=== PATIENT | male | born 1970 | race Two or more races ===

== ENCOUNTER 2024-07-27 01:14 | Inpatient (IN) | payer MEDICARE, MEDICAID ==
[~2024-07-27] VITALS: Ht 170.2 cm; Wt 83.5 kg
[2024-07-27] VITALS (10 sets, daily range): BP systolic 121–156; BP diastolic 67–102; PULSE 61–107; RESP 12–16; TEMP 97.4–98.6; O2SAT 91–99
[2024-07-27 03:03] LABS: BASOPHILS # (AUTO) 0.1 X10'3 (0-0.2); BASOPHILS % (AUTO) 1.1 % (0-1); EOSINOPHILS # (AUTO) 0.1 X10'3 (0-0.9); EOSINOPHILS % (AUTO) 1.5 % (0-6); HEMATOCRIT 43.2 % (42.0-52.0); HEMOGLOBIN 14.4 g/dl (14.0-17.9); LYMPHOCYTES # (AUTO) 1.2 X10'3 (1.1-4.8); LYMPHOCYTES % (AUTO) 18.6 % (21-51); MEAN CORPUSCULAR HEMOGLOBIN 28.5 PG (27.0-31.0); MEAN CORPUSCULAR HGB CONC 33.4 g/dL (33.0-36.5); MEAN CORPUSCULAR VOLUME 85.2 FL (78-98); MEAN PLATELET VOLUME 6.8 FL (7.4-10.4); MONOCYTES # (AUTO) 0.6 X10'3 (0-0.9); MONOCYTES % (AUTO) 9.3 % (2-12); NEUTROPHILS # (AUTO) 4.6 X10'3 (1.8-7.7); NEUTROPHILS % (AUTO) 69.5 % (42-75); PLATELET COUNT 369 X10'3 (140-440); RED BLOOD COUNT 5.08 X10'6 (4.70-6.10); RED CELL DISTRIBUTION WIDTH 15.1 % (11.5-14.5); WHITE BLOOD COUNT 6.7 X10'3 (4.5-11.0)
[2024-07-27] MEDS: normal saline 1000ml 1,000 ML IV ONE (03:18)
[2024-07-27 03:19] LABS: ALANINE AMINOTRANSFERASE 22 U/L (12-78); ALBUMIN 3.2 G/DL (3.4-5.0); ALBUMIN/GLOBULIN RATIO 0.7 (1.1-1.5); ALKALINE PHOSPHATASE 123 IU/L (46-116); ANION GAP 9 (8-16); ASPARTATE AMINO TRANSFERASE 19 U/L (10-37); BILIRUBIN,DIRECT 0.2 MG/DL (0-0.3); BILIRUBIN,TOTAL 0.6 MG/DL (0.1-1.0); BLOOD UREA NITROGEN 18 MG/DL (7-18); BUN/CREATININE RATIO 19.4 (10.0-20.0); CALCIUM 9.4 MG/DL (8.5-10.1); CHLORIDE 104 MMOL/L (99-107); CREATININE 0.93 MG/DL (0.60-1.10); GLUCOSE 98 MG/DL (70-104); POTASSIUM 3.7 MMOL/L (3.5-5.1); SODIUM 139 MMOL/L (135-145); TOTAL CARBON DIOXIDE 25.6 MMOL/L (24-32); TOTAL PROTEIN 7.8 G/DL (6.4-8.2); eCRCL 85 ML/MIN; eGFR 85 ML/MIN
[2024-07-27] MEDS: CefTRIAXone 2gm/D5W 50ml BAG 50 ML IV ONE (03:22)
[2024-07-27] MEDS: VANCOMYCIN 1,500MG inj. 1,500 MG in normal saline 500ml IV soln 300 ML IV SCH (04:21)
[2024-07-27] MEDS ORDERED: mag hydrox/Alum hydrox/simeth 30ml oral suspension PO PRN (05:30)
[2024-07-27] MEDS ORDERED: potassium Cl 40MEQ/1/2NS 520ml 520 ML IV PRN (05:30)
[2024-07-27] MEDS ORDERED: HYDROcodone/acetaminophen 5mg/325mg tablet PO PRN (05:30)
[2024-07-27] MEDS ORDERED: magnesium hydroxide 30ml (MOM) UD suspension PO PRN (05:30)
[2024-07-27] MEDS ORDERED: magnesium sulf-water 4G/100mL 100 ML IV PRN (05:30)
[2024-07-27] MEDS ORDERED: potassium Cl 20 mEq SR tablet PO PRN ×2 (05:30)
[2024-07-27] MEDS ORDERED: acetaminophen 325mg tablet PO PRN ×2 (05:30)
[2024-07-27] MEDS ORDERED: magnesium Cl slow-release 64mg tablet PO PRN (05:30)
[2024-07-27] MEDS ORDERED: magnesium sulf-water 2g/50mL 50 ML IV PRN (05:30)
[2024-07-27] MEDS: morphine 2 MG/ML inj. syringe IV PRN (05:48)
[2024-07-27] MEDS: normal saline 1000ml 1,000 ML IV SCH (05:48)
[2024-07-27] MEDS: K and/or MAG REPLACEMENT MC SCH (07:13)
[2024-07-27] MEDS ORDERED: albuterol 2.5 MG/3 ML nebule NEB PRN (07:35)
[2024-07-27] MEDS ORDERED: piperacillin/tazo 4.5gm/100ml 100 ML IV SCH (08:00)
[2024-07-27] MEDS: docusate sod 100mg capsule PO SCH (08:23)
[2024-07-27 08:35] LABS: MAGNESIUM 2.2 MG/DL (1.5-2.4); POTASSIUM 3.7 MMOL/L (3.5-5.1)
--- NOTE | 2024-07-27 08:59 | NUR ---
[facility] FAXED MRI SCREENING FORM
[2024-07-27] MEDS ORDERED: ALBU18HF2 (12:34)
[2024-07-27] MEDS ORDERED: BACL10TA2 PO (12:34)
[2024-07-27] MEDS ORDERED: HYDR-3964 PO (12:34)
[2024-07-27] MEDS: bacitracin 15gm ointment TP ONE (13:13)
[2024-07-27] MEDS: BUPIVAcaine/PF 2.5mg/ml (0.25%) 10ml vial ONE (13:13)
[2024-07-27] MEDS ORDERED: hydrALAZINE 20mg/ml inj. IV PRN (14:15)
[2024-07-27] MEDS ORDERED: morphine 2 MG/ML inj. syringe IV PRN (14:15)
[2024-07-27] MEDS: ringers solution, lacted 1,000 ML IV SCH (14:15)
[2024-07-27] MEDS ORDERED: labetalol 20mg/4ml (5mg/ml) syringe IV PRN (14:15)
[2024-07-27] MEDS ORDERED: ondansetron/PF 4mg/2ml inj IV PRN (14:15)
[2024-07-27] MEDS ORDERED: fentaNYL/PF 50MCG/1 ML 2ML syringe IV PRN ×2 (14:15)
[2024-07-27] MEDS ORDERED: fentaNYL/PF 50MCG/1 ML 2ML syringe ONE (14:24)
[2024-07-27] MEDS ORDERED: midazolam 1 mg/ML 2ml injection ONE (14:25)
[2024-07-27] MEDS ORDERED: propofol inj 20 ML IV ONE ×2 (14:27)
[2024-07-27] MEDS ORDERED: LIDOcaine 2% (20mg/ml) 5ml vial ONE (14:27)
[2024-07-27] MEDS ORDERED: dexamethasone sod phosphate 4mg/ml inj. ONE (14:27)
[2024-07-27] MEDS ORDERED: sevoflurane 250ml liquid IH ONE (14:27)
[2024-07-27] MEDS: vancomycin 1,000mg inj ONE (14:58)
[2024-07-27] MEDS: tobramycin 40mg/ml inj ONE (14:58)
[2024-07-27] MEDS: vancomycin 1,000mg inj IVT ONE (15:22)
--- NOTE | 2024-07-27 16:06 | NUR ---
Received from OR via BED, accompanied by Anesthesiologist and report given by JACKELIN Anesthesiologist. PATIENT WAKING UP, DENIES PAIN, V/S WNL, SCD ON, 20G TO RIGHT FOREARM, LEFT FOOT DRESSING C/D/I. Addendum: 07/27/24 at 1627 by Rishabh Nicholas RN Amended: Links added.
[2024-07-27] MEDS ORDERED: GADOTERATE MEGLUMINE 7.5 MMOL/15 ML VIAL IV ONE (16:08)
[2024-07-27] MEDS: morphine 4 MG/ML inj SYRINge IV PRN (16:12)
--- NOTE | 2024-07-27 16:36 | NUR ---
PATIENT HAS MET ALL CRITERIA FOR TRANSFER TO ORTHO FLOOR. VSS. DRESSINGS INTACT. BED LOW, CALL LIGHT PRESENT AND 2 RAILS UP. RN PRESENT TO ACCEPT CARE OF PATIENT AND REPORT HAS BEEN CALLED. ALL QUESTIONS ANSWERED TO ACCEPTING RN-ARSLAN. Addendum: 07/27/24 at 1655 by Rishabh Nicholas RN Amended: Links added.
[2024-07-27] MEDS ORDERED: vancomycin/NS 1 GM ADD-VANTAGE 250 ML IV SCH (17:00)
[2024-07-27] MEDS: VANCOmycin 1250MG/NS 250ml Bag 250 ML IV SCH (17:21)
--- NOTE | 2024-07-27 18:24 | NUR ---
Problems reprioritized. Patient report given, questions answered & plan of care reviewed with Nathaniel LYNN.
--- NOTE | 2024-07-27 19:20 | NUR ---
Patient in room ORTHO 4024. I have received report from Mayra LYNN and had the opportunity to ask questions and assume patient care. Patient was being noncompliant and walking to the bathroom. Dressing was reinforced due to saturation. Called Dr. Lares and updated him regarding the situation. Will continue to reinforce the dressing if saturated or displaced. Addendum: 07/27/24 at 1926 by Magno Lewis RN Patient is also to be non weight bearing on the affected foot.
[2024-07-28] MEDS: HYDROcodone/acetaminophen 10/325mg tab PO PRN (01:55)
[2024-07-28 02:00] VITALS: BP 117/58; PULSE 75; RESP 18; TEMP 98.2; O2SAT 94
[2024-07-28] MEDS ORDERED: CefTRIAXone/D5W-Rocephin 1gm 50 ML IV SCH (03:00)
--- NOTE | 2024-07-28 06:10 | NUR ---
Problems reprioritized. Patient report given, questions answered & plan of care reviewed with Anni LYNN.
[2024-07-28 06:13] LABS: PROTHROMBIN TIME 10.4 SECONDS (9.0-12.0)
[2024-07-28 06:43] LABS: ANION GAP 10 (8-16); BLOOD UREA NITROGEN 13 MG/DL (7-18); BUN/CREATININE RATIO 17.1 (10.0-20.0); CALCIUM 8.5 MG/DL (8.5-10.1); CHLORIDE 107 MMOL/L (99-107); CREATININE 0.76 MG/DL (0.60-1.10); GLUCOSE 117 MG/DL (70-104); MAGNESIUM 1.9 MG/DL (1.5-2.4); SODIUM 142 MMOL/L (135-145); TOTAL CARBON DIOXIDE 24.7 MMOL/L (24-32); eCRCL 104 ML/MIN; eGFR > 90 ML/MIN
[2024-07-28 06:45] LABS: ALANINE AMINOTRANSFERASE 21 U/L (12-78); ALBUMIN 2.6 G/DL (3.4-5.0); ALBUMIN/GLOBULIN RATIO 0.6 (1.1-1.5); ALKALINE PHOSPHATASE 105 IU/L (46-116); ASPARTATE AMINO TRANSFERASE 21 U/L (10-37); BILIRUBIN,TOTAL 0.2 MG/DL (0.1-1.0); TOTAL PROTEIN 6.8 G/DL (6.4-8.2)
[2024-07-28 08:00] VITALS: BP 116/62; PULSE 66; RESP 18; TEMP 98.4; O2SAT 98
[2024-07-28 10:00] VITALS: BP 122/77; PULSE 67; RESP 18; TEMP 97.9; O2SAT 97
[2024-07-28 10:12] LABS: BASOPHILS % (AUTO) 0.4 % (0-1); EOSINOPHILS % (AUTO) 0.1 % (0-6); HEMATOCRIT 41.4 % (42.0-52.0); HEMOGLOBIN 13.7 g/dl (14.0-17.9); LYMPHOCYTES # (AUTO) 0.9 X10'3 (1.1-4.8); LYMPHOCYTES % (AUTO) 8.7 % (21-51); MEAN CORPUSCULAR HEMOGLOBIN 28.3 PG (27.0-31.0); MEAN CORPUSCULAR HGB CONC 33.2 g/dL (33.0-36.5); MEAN CORPUSCULAR VOLUME 85.2 FL (78-98); MEAN PLATELET VOLUME 7.6 FL (7.4-10.4); MONOCYTES # (AUTO) 0.7 X10'3 (0-0.9); MONOCYTES % (AUTO) 6.8 % (2-12); NEUTROPHILS # (AUTO) 8.9 X10'3 (1.8-7.7); PLATELET COUNT 346 X10'3 (140-440); RED BLOOD COUNT 4.85 X10'6 (4.70-6.10); RED CELL DISTRIBUTION WIDTH 15.5 % (11.5-14.5); WHITE BLOOD COUNT 10.5 X10'3 (4.5-11.0)
[2024-07-28] MEDS: baclofen 10mg tablet PO SCH (14:13)
[2024-07-28] MEDS: VANCOMYCIN LEVEL IV ONE (16:05)
[2024-07-28 18:00] VITALS: BP 123/87; PULSE 76; RESP 18; TEMP 98.3; O2SAT 98
--- NOTE | 2024-07-28 18:46 | NUR ---
Problems reprioritized. Patient report given, questions answered & plan of care reviewed with SHANE Ghosh.
[2024-07-28 20:00] VITALS: RESP 18; O2SAT 98
[2024-07-28] MEDS: albuterol 2.5 MG/3 ML nebule NEB SCH (21:00)
[2024-07-28 22:00] VITALS: BP 126/76; PULSE 75; RESP 18; TEMP 97.3; O2SAT 98
[2024-07-29] VITALS (8 sets, daily range): BP systolic 119–145; BP diastolic 79–83; PULSE 55–76; RESP 14–18; TEMP 97.6–98.1; O2SAT 97–99
[2024-07-29] MEDS: VANCOMYCIN 1,500MG in NS 300ml IVPB IV SCH (04:28)
--- NOTE | 2024-07-29 06:26 | NUR ---
Problems reprioritized. Patient report given, questions answered & plan of care reviewed with Ana Maria GUSMAN. Addendum: 07/29/24 at 0627 by Davina New RN Amended: Links added.
[2024-07-29 06:37] LABS: BASOPHILS % (AUTO) 0.9 % (0-1); EOSINOPHILS # (AUTO) 0.1 X10'3 (0-0.9); EOSINOPHILS % (AUTO) 1.5 % (0-6); HEMATOCRIT 43.6 % (42.0-52.0); HEMOGLOBIN 14.6 g/dl (14.0-17.9); LYMPHOCYTES # (AUTO) 1.4 X10'3 (1.1-4.8); MEAN CORPUSCULAR HEMOGLOBIN 28.4 PG (27.0-31.0); MEAN CORPUSCULAR HGB CONC 33.5 g/dL (33.0-36.5); MEAN CORPUSCULAR VOLUME 84.7 FL (78-98); MEAN PLATELET VOLUME 7.3 FL (7.4-10.4); MONOCYTES # (AUTO) 0.4 X10'3 (0-0.9); MONOCYTES % (AUTO) 8.6 % (2-12); NEUTROPHILS # (AUTO) 3.2 X10'3 (1.8-7.7); PLATELET COUNT 334 X10'3 (140-440); RED BLOOD COUNT 5.14 X10'6 (4.70-6.10); RED CELL DISTRIBUTION WIDTH 15.5 % (11.5-14.5); WHITE BLOOD COUNT 5.2 X10'3 (4.5-11.0)
[2024-07-29 06:41] LABS: PROTHROMBIN TIME 10.5 SECONDS (9.0-12.0)
[2024-07-29 06:50] LABS: ALANINE AMINOTRANSFERASE 18 U/L (12-78); ALBUMIN 2.7 G/DL (3.4-5.0); ALBUMIN/GLOBULIN RATIO 0.6 (1.1-1.5); ALKALINE PHOSPHATASE 98 IU/L (46-116); ANION GAP 8 (8-16); ASPARTATE AMINO TRANSFERASE 10 U/L (10-37); BILIRUBIN,TOTAL 0.3 MG/DL (0.1-1.0); BLOOD UREA NITROGEN 8 MG/DL (7-18); BUN/CREATININE RATIO 11.3 (10.0-20.0); CALCIUM 8.8 MG/DL (8.5-10.1); CHLORIDE 107 MMOL/L (99-107); CREATININE 0.71 MG/DL (0.60-1.10); GLUCOSE 103 MG/DL (70-104); MAGNESIUM 1.6 MG/DL (1.5-2.4); POTASSIUM 3.8 MMOL/L (3.5-5.1); SODIUM 144 MMOL/L (135-145); TOTAL CARBON DIOXIDE 29.1 MMOL/L (24-32); TOTAL PROTEIN 6.9 G/DL (6.4-8.2); eCRCL 111 ML/MIN; eGFR > 90 ML/MIN
[2024-07-29] MEDS: albuterol 2.5 MG/3 ML nebule NEB SCH (11:37)
--- NOTE | 2024-07-29 12:30 | NUR ---
approximately around 1230 I was directed from my charge abhijit to move patient from 4024B to room 4007. When gathering his belongings the patient acted very suspicious and paranoid about nursing staff touching his belongings. When patients bed was transferred I saw a straw on the floor that was cut in half. Inside the straw was white residue and on the floor there were chunks of white stuff scattered periodically on the floor. Notified HEAD LOADER and charge nurse. will do a UA per protocol.
[2024-07-29 17:40] LABS: BILIRUBIN,URINE NEGATIVE (Neg); CLARITY,URINE CLEAR (Clear); COLOR,URINE STRAW (Yellow); GLUCOSE, URINE NEGATIVE (Neg); KETONES,URINE NEGATIVE (Neg); LEUKOCYTE ESTERASE ,URINE NEGATIVE (Neg); NITRITES, URINE NEGATIVE (Neg); OCCULT BLOOD,URINE NEGATIVE (Neg); PROTEIN,URINE NEGATIVE (Neg); UROBILINOGEN,URINE 0.2 E.U/dL (0.2-1.0)
[2024-07-29 17:43] LABS: UA COLLECTION TYPE NON-SPECIFIED
[2024-07-29 17:52] LABS: URINE AMPHETAMINE SCREEN NEGATIVE (Neg); URINE BARBITUATE SCREEN NEGATIVE (Neg); URINE BENZODIAZEPINES SCREEN NEGATIVE (Neg); URINE CANNABINOID SCREEN POSITIVE (Neg); URINE COCAINE SCREEN NEGATIVE (Neg); URINE METHADONE SCREEN NEGATIVE (Neg); URINE OPIATE SCREEN POSITIVE (Neg); URINE PHENCYCLIDINE SCREEN NEGATIVE (Neg)
--- NOTE | 2024-07-29 19:35 | NUR ---
Patient resting comfortably on bed, easy to wake. Has no concerns at this time.
[2024-07-29] MEDS: ondansetron/PF 4mg/2ml inj IV PRN (22:10)
[2024-07-30] VITALS (9 sets, daily range): BP systolic 116–149; BP diastolic 69–91; PULSE 61–82; RESP 14–20; TEMP 97.5–98.6; O2SAT 95–100
[2024-07-30 02:22] LABS: BASOPHILS # (AUTO) 0.1 X10'3 (0-0.2); BASOPHILS % (AUTO) 1.1 % (0-1); EOSINOPHILS # (AUTO) 0.1 X10'3 (0-0.9); EOSINOPHILS % (AUTO) 1.8 % (0-6); HEMATOCRIT 41.8 % (42.0-52.0); LYMPHOCYTES # (AUTO) 1.3 X10'3 (1.1-4.8); MEAN CORPUSCULAR HGB CONC 33.4 g/dL (33.0-36.5); MEAN CORPUSCULAR VOLUME 83.9 FL (78-98); MONOCYTES # (AUTO) 0.6 X10'3 (0-0.9); MONOCYTES % (AUTO) 10.4 % (2-12); NEUTROPHILS % (AUTO) 65.7 % (42-75); PLATELET COUNT 327 X10'3 (140-440); RED BLOOD COUNT 4.98 X10'6 (4.70-6.10); RED CELL DISTRIBUTION WIDTH 15.8 % (11.5-14.5)
[2024-07-30 02:37] LABS: PROTHROMBIN TIME 10.2 SECONDS (9.0-12.0)
[2024-07-30 02:40] LABS: ALANINE AMINOTRANSFERASE 20 U/L (12-78); ALBUMIN 2.4 G/DL (3.4-5.0); ALBUMIN/GLOBULIN RATIO 0.6 (1.1-1.5); ALKALINE PHOSPHATASE 87 IU/L (46-116); ANION GAP 6 (8-16); ASPARTATE AMINO TRANSFERASE 15 U/L (10-37); BILIRUBIN,TOTAL 0.2 MG/DL (0.1-1.0); BLOOD UREA NITROGEN 11 MG/DL (7-18); BUN/CREATININE RATIO 14.9 (10.0-20.0); CALCIUM 8.9 MG/DL (8.5-10.1); CHLORIDE 107 MMOL/L (99-107); CREATININE 0.74 MG/DL (0.60-1.10); GLUCOSE 99 MG/DL (70-104); MAGNESIUM 1.6 MG/DL (1.5-2.4); POTASSIUM 4.1 MMOL/L (3.5-5.1); SODIUM 142 MMOL/L (135-145); TOTAL CARBON DIOXIDE 28.8 MMOL/L (24-32); TOTAL PROTEIN 6.3 G/DL (6.4-8.2); eCRCL 107 ML/MIN; eGFR > 90 ML/MIN
[2024-07-30] MEDS: morphine 2 MG/ML inj. syringe IV PRN (04:08)
--- NOTE | 2024-07-30 05:09 | NUR ---
CARDIOVASCULAR INVASIVE SPECIALIST DOCUMENTATION: I have reviewed all assessment and charting on this patient by Tyrese GUSMAN and agree with his documentation.
--- NOTE | 2024-07-30 06:21 | NUR ---
Problems reprioritized. Patient report given, questions answered & plan of care reviewed with Adrián RN.
--- NOTE | 2024-07-30 06:36 | NUR ---
Patient in room ORTHO 4007. I have received report from Tyrese GUSMAN and had the opportunity to ask questions and assume patient care.
--- NOTE | 2024-07-30 06:43 | NUR ---
Problems reprioritized. Patient report given, questions answered & plan of care reviewed with Adrián RN.
[2024-07-30] MEDS: VANCOMYCIN 1,500MG in NS 300ml IVPB IV SCH (12:00)
[2024-07-30] MEDS ORDERED: VANCOMYCIN LEVEL IV ONE (15:30)
--- NOTE | 2024-07-30 18:17 | NUR ---
Problems reprioritized. Patient report given, questions answered & plan of care reviewed with Ehsan LYNN.
[2024-07-30] MEDS: enoxaparin 40mg/0.4ml syringe SUBCUT SCH (21:11)
[2024-07-31] VITALS (10 sets, daily range): BP systolic 140–146; BP diastolic 76–97; PULSE 62–76; RESP 16–20; TEMP 97.8–98.6; O2SAT 96–100
[2024-07-31 06:08] LABS: BASOPHILS # (AUTO) 0.1 X10'3 (0-0.2); BASOPHILS % (AUTO) 1.2 % (0-1); EOSINOPHILS # (AUTO) 0.1 X10'3 (0-0.9); EOSINOPHILS % (AUTO) 1.9 % (0-6); HEMATOCRIT 44.7 % (42.0-52.0); HEMOGLOBIN 14.6 g/dl (14.0-17.9); LYMPHOCYTES # (AUTO) 1.2 X10'3 (1.1-4.8); LYMPHOCYTES % (AUTO) 22.4 % (21-51); MEAN CORPUSCULAR HEMOGLOBIN 27.7 PG (27.0-31.0); MEAN CORPUSCULAR HGB CONC 32.8 g/dL (33.0-36.5); MEAN CORPUSCULAR VOLUME 84.5 FL (78-98); MEAN PLATELET VOLUME 7.3 FL (7.4-10.4); MONOCYTES # (AUTO) 0.5 X10'3 (0-0.9); MONOCYTES % (AUTO) 9.1 % (2-12); NEUTROPHILS # (AUTO) 3.5 X10'3 (1.8-7.7); NEUTROPHILS % (AUTO) 65.4 % (42-75); PLATELET COUNT 337 X10'3 (140-440); RED BLOOD COUNT 5.29 X10'6 (4.70-6.10); RED CELL DISTRIBUTION WIDTH 15.7 % (11.5-14.5); WHITE BLOOD COUNT 5.4 X10'3 (4.5-11.0)
[2024-07-31 06:18] LABS: PROTHROMBIN TIME 10.3 SECONDS (9.0-12.0)
[2024-07-31 06:28] LABS: ALANINE AMINOTRANSFERASE 29 U/L (12-78); ALBUMIN 2.7 G/DL (3.4-5.0); ALBUMIN/GLOBULIN RATIO 0.7 (1.1-1.5); ALKALINE PHOSPHATASE 96 IU/L (46-116); ANION GAP 7 (8-16); ASPARTATE AMINO TRANSFERASE 29 U/L (10-37); BILIRUBIN,TOTAL 0.3 MG/DL (0.1-1.0); BLOOD UREA NITROGEN 10 MG/DL (7-18); BUN/CREATININE RATIO 12.8 (10.0-20.0); CHLORIDE 108 MMOL/L (99-107); CREATININE 0.78 MG/DL (0.60-1.10); GLUCOSE 86 MG/DL (70-104); MAGNESIUM 1.7 MG/DL (1.5-2.4); SODIUM 143 MMOL/L (135-145); TOTAL CARBON DIOXIDE 27.7 MMOL/L (24-32); TOTAL PROTEIN 6.8 G/DL (6.4-8.2); eCRCL 101 ML/MIN; eGFR > 90 ML/MIN
--- NOTE | 2024-07-31 06:45 | NUR ---
Problems reprioritized. Patient report given, questions answered & plan of care reviewed with SHANE Perez.
--- NOTE | 2024-07-31 14:21 | NUR ---
PRESSURE ULCER EDUCATION: DEFINITION: A pressure ulcer is an area of skin that breaks down when you stay in one position too long. The constant pressure against the skin reduces the blood flow to that area and the affected tissue dies. CAUSES: "Being bedridden or in a wheelchair "Fragile skin "Having a chronic condition, such as diabetes or vascular disease "Inability to move certain parts of your body without assistance "Older age "Incontinence of urine or stool SYMPTOMS: "A reddened area that DOES NOT turn white when pressed on - this can be the beginning of a pressure ulcer "A blister, deep sore or a crater - these can be advanced pressure ulcers FIRST AID: "Relieve the pressure on this area "Keep the area clean and dry "Call your primary doctor if you see any of the above symptoms "DO NOT massage the area "DO NOT use a donut shaped or ring shaped pillow- these actually interfere with the blood flow and cause complications PREVENTION: "Check for pressure ulcers everyday "Change position at least every two hours to relieve pressure "Use items that help relieve pressure- pillows, sheepskin, foam padding, and powders. "Keep skin clean and dry "Eat healthy well balanced meals "Exercise daily IF YOU SEE ANY OF THESE SYMPTOMS WHILE IN THE HOSPITAL - TELL YOUR NURSE IMMEDIATELY. IF YOU SEE ANY OF THESE SYMPTOMS WHILE AT HOME OR HAVE ANY QUESTIONS OR CONCERNS ABOUT PRESSURE ULCERS - CALL YOUR PRIMARY DOCTOR IMMEDIATELY. Addendum: 07/31/24 at 1421 by Anthony Moss RN Amended: Links added.
--- NOTE | 2024-07-31 18:05 | NUR ---
Patient in room ORTHO 4007. I have received report from Ana LYNN and had the opportunity to ask questions and assume patient care.
[2024-07-31] MEDS: VANCOMYCIN LEVEL IV ONE (23:00)
[2024-08-01] VITALS (9 sets, daily range): BP systolic 124–147; BP diastolic 62–93; PULSE 65–90; RESP 16–19; TEMP 98–98.8; O2SAT 95–99
[2024-08-01 05:37] LABS: HBSAG SCREEN Negative (Negative); HEP B CORE AB, IGM Negative (Negative); HEP B CORE AB, TOT Negative (Negative)
[2024-08-01 05:51] LABS: BASOPHILS # (AUTO) 0.1 X10'3 (0-0.2); EOSINOPHILS # (AUTO) 0.1 X10'3 (0-0.9); EOSINOPHILS % (AUTO) 2.1 % (0-6); HEMATOCRIT 41.8 % (42.0-52.0); HEMOGLOBIN 13.7 g/dl (14.0-17.9); LYMPHOCYTES # (AUTO) 1.1 X10'3 (1.1-4.8); MEAN CORPUSCULAR HEMOGLOBIN 27.9 PG (27.0-31.0); MEAN CORPUSCULAR HGB CONC 32.7 g/dL (33.0-36.5); MEAN CORPUSCULAR VOLUME 85.1 FL (78-98); MEAN PLATELET VOLUME 7.5 FL (7.4-10.4); MONOCYTES # (AUTO) 0.6 X10'3 (0-0.9); NEUTROPHILS # (AUTO) 4.4 X10'3 (1.8-7.7); NEUTROPHILS % (AUTO) 70.9 % (42-75); PLATELET COUNT 313 X10'3 (140-440); RED BLOOD COUNT 4.91 X10'6 (4.70-6.10); RED CELL DISTRIBUTION WIDTH 15.7 % (11.5-14.5); WHITE BLOOD COUNT 6.2 X10'3 (4.5-11.0)
[2024-08-01 06:11] LABS: INR 0.9 INR; PROTHROMBIN TIME 10.1 SECONDS (9.0-12.0)
[2024-08-01 06:16] LABS: ALANINE AMINOTRANSFERASE 27 U/L (12-78); ALBUMIN 2.7 G/DL (3.4-5.0); ALBUMIN/GLOBULIN RATIO 0.7 (1.1-1.5); ALKALINE PHOSPHATASE 93 IU/L (46-116); ANION GAP 8 (8-16); ASPARTATE AMINO TRANSFERASE 17 U/L (10-37); BILIRUBIN,TOTAL 0.3 MG/DL (0.1-1.0); BLOOD UREA NITROGEN 11 MG/DL (7-18); BUN/CREATININE RATIO 14.3 (10.0-20.0); CALCIUM 9.1 MG/DL (8.5-10.1); CHLORIDE 106 MMOL/L (99-107); CREATININE 0.77 MG/DL (0.60-1.10); GLUCOSE 99 MG/DL (70-104); POTASSIUM 3.8 MMOL/L (3.5-5.1); SODIUM 141 MMOL/L (135-145); TOTAL CARBON DIOXIDE 26.8 MMOL/L (24-32); TOTAL PROTEIN 6.8 G/DL (6.4-8.2); eCRCL 103 ML/MIN; eGFR > 90 ML/MIN
--- NOTE | 2024-08-01 06:35 | NUR ---
Problems reprioritized. Patient report given, questions answered & plan of care reviewed with Kaylee LYNN.
--- NOTE | 2024-08-01 13:19 | NUR ---
Primary nurse called to ask if surgical dressing has been changed by [facility]OC. Directed primary nurse to contact surgeon for orders. [facility]OC plan to follow up later in the week.
--- NOTE | 2024-08-01 18:05 | NUR ---
Patient in room ORTHO 4007. I have received report from Kaylee LYNN and had the opportunity to ask questions and assume patient care.
[2024-08-02] VITALS (8 sets, daily range): BP systolic 121–154; BP diastolic 76–92; PULSE 64–74; RESP 16–18; TEMP 97.6–98.3; O2SAT 97–99
--- NOTE | 2024-08-02 06:22 | NUR ---
Problems reprioritized. Patient report given, questions answered & plan of care reviewed with Petr LYNN.
--- NOTE | 2024-08-02 13:58 | NUR ---
WOUND INFECTION EDUCATION PROVIDED BY WOUND CARE 1. Patient instructed to call their primary doctor, or go the ED immediately if any of the following symptoms occur: * Increased pain in wound * Increase in drainage from the wound * Redness in the skin surrounding the wound * Warmth in the skin surrounding the wound * Bleeding from the wound * Temperature of 101 or greater 2. If any of these occur while in the hospital tell a nurse immediately. Addendum: 08/02/24 at 1358 by Dalia Alejandro LVN Amended: Links added.
--- NOTE | 2024-08-02 14:00 | NUR ---
Patient in room ORTHO 4007. I have received report from SHANE ROLON and had the opportunity to ask questions and assume patient care.
--- NOTE | 2024-08-02 14:00 | NUR ---
Report given to Trinity Nguyen RN.
--- NOTE | 2024-08-02 18:22 | NUR ---
Problems reprioritized. Patient report given, questions answered & plan of care reviewed with SHANE BROWN.
--- NOTE | 2024-08-02 18:44 | NUR ---
Patient in room ORTHO 4007. I have received report from Trinity LYNN and had the opportunity to ask questions and assume patient care.
--- NOTE | 2024-08-02 19:49 | NUR ---
pt showed me a paper check from his [place] for $713 and wanted to deposit it. He also has a debit card. I will follow up with charge and case management and add check to belongings list.
--- NOTE | 2024-08-03 06:10 | NUR ---
Problems reprioritized. Patient report given, questions answered & plan of care reviewed with Janny RN.
[2024-08-03 07:18] VITALS: RESP 16; O2SAT 99
--- NOTE | 2024-08-03 08:00 | NUR ---
after several attempts to connect with someone at [facility] rehab [phone] finally able to give report to Kelsie nurse at station 3, pt to be picked up soon
[2024-08-03 08:02] VITALS: BP 142/82; PULSE 65; RESP 17; TEMP 98.3; O2SAT 99
--- NOTE | 2024-08-03 08:30 | NUR ---
saroj roger that transport now changed to 1 pm, pc to [facility] spoke with Corazon to update
--- NOTE | 2024-08-03 09:11 | NUR ---
Patient requested covering for right finger. Per Dr. Hutchinson's request. Applied 4x4 gauze with medical tape to cover right finger.
--- NOTE | 2024-08-03 10:03 | NUR ---
Garret Hutchinson NP via hospital phone. Waiting for a response regarding patient wanting to leave on his own.
[2024-08-03 10:07] VITALS: PULSE 67; RESP 16; O2SAT 100
[2024-08-03 10:15] VITALS: PULSE 67; RESP 16
--- NOTE | 2024-08-03 10:15 | NUR ---
Garret Hutchinson NP via computer. Notified the healthcare provider that Patient [id number] wants to leave on his own. Waiting for a response.
[2024-08-03 10:29] VITALS: BP 125/70; PULSE 67; RESP 18; TEMP 98.7; O2SAT 96
--- NOTE | 2024-08-03 12:01 | NUR ---
Talked to physical therapy. He is discharged from physical therapy due to being discharged at 1300.
--- NOTE | 2024-08-03 13:15 | NUR ---
Transportation got the patient for discharge. IV line has been discontinued.
--- NOTE | 2024-08-03 13:33 | NUR ---
pc to [facility] to update Lorena that pt is in route and had vanco dose this am at 1130 am, forgot to update transfer sheet from this am
--- NOTE | 2024-08-03 18:30 | NUR ---
preceptor telephone triage nurse: I have reviewed and agree with all interventions, assessments performed and documented by Ludivina Kuhn RN.
== END 2024-08-03 13:00 | DRG 496 ==
LOC: ER 01:16 → ED HOLD 05:35 → ORTHO 4S 16:45
PROVIDERS: ADMIT Internal Medicine Sleep Medicine; ATTEND Internal Medicine
PROC: 0QDP0ZZ Extraction of Left Metatarsal, Open Approach (ICD-10-PCS; 2024-07-27)
PROC: 0QPP04Z Removal of Internal Fixation Device from Left Metatarsal, Open Approach (ICD-10-PCS; 2024-07-27)
PROC: 3E0U029 Introduction of Other Anti-infective into Joints, Open Approach (ICD-10-PCS; principal; 2024-07-27 14:27)
PROC: 02HV33Z Insertion of Infusion Device into Superior Vena Cava, Percutaneous Approach (ICD-10-PCS; 2024-07-31)
DX: T84.59XA Infection and inflammatory reaction due to other internal joint prosthesis, initial encounter (principal); L03.116 Cellulitis of left lower limb; M86.8X7 Other osteomyelitis, ankle and foot; J45.909 Unspecified asthma, uncomplicated; Z60.2 Problems related to living alone; G80.9 Cerebral palsy, unspecified; M21.612 Bunion of left foot; X58.XXXA Exposure to other specified factors, initial encounter; Y83.8 Other surgical procedures as the cause of abnormal reaction of the patient, or of later complication, without mention of misadventure at the time of the procedure; Y92.89 Other specified places as the place of occurrence of the external cause
CPT/HCPCS: 36415; 73630; 76942; 80048; 80053; 80076; 80202; 80305; 81003; 82948; 83605; 83735; 84132; 84145; 85025; 85610; 85651; 86704; 86705; 87040; 87070; 87075; 87077; 87081; 87186; 87340; 94640; 94760; 96365; 96366; 96375; 97110; 97116; 97161; 97530; 99285; A4333; A4615; A4618; A6196; A6213; A6222; A6266; A6446; A6449; A7000; A9575; C1713; C1751; G0378; J0696; J1100; J1650; J2250; J2270; J2405; J2704; J3010; J3260; J3370; J3490; J7030; J7040

== ENCOUNTER 2024-12-09 00:53 | Emergency (ER) | payer BC, MEDICAID ==
[~2024-12-09] VITALS: Ht 170.2 cm; Wt 79.2 kg
[~2024-12-09 00:53] MED LIST: ALBU18HF2; BACL10TA2 PO; HYDR-3964 PO
[2024-12-09 01:04] VITALS: BP 119/69; PULSE 85; TEMP 97.9; O2SAT 97
[2024-12-09 01:48] LABS: BASOPHILS # (AUTO) 0.1 X10'3 (0-0.2); BASOPHILS % (AUTO) 1.5 % (0-1); EOSINOPHILS # (AUTO) 0.3 X10'3 (0-0.9); EOSINOPHILS % (AUTO) 6.6 % (0-6); HEMATOCRIT 43.6 % (42.0-52.0); HEMOGLOBIN 14.8 g/dl (14.0-17.9); LYMPHOCYTES # (AUTO) 1.6 X10'3 (1.1-4.8); LYMPHOCYTES % (AUTO) 36.9 % (21-51); MEAN CORPUSCULAR HEMOGLOBIN 29.5 PG (27.0-31.0); MEAN CORPUSCULAR HGB CONC 33.9 g/dL (33.0-36.5); MEAN PLATELET VOLUME 6.8 FL (7.4-10.4); MONOCYTES # (AUTO) 0.6 X10'3 (0-0.9); MONOCYTES % (AUTO) 13.7 % (2-12); NEUTROPHILS # (AUTO) 1.8 X10'3 (1.8-7.7); NEUTROPHILS % (AUTO) 41.3 % (42-75); PLATELET COUNT 323 X10'3 (140-440); RED BLOOD COUNT 5.01 X10'6 (4.70-6.10); RED CELL DISTRIBUTION WIDTH 14.6 % (11.5-14.5); WHITE BLOOD COUNT 4.4 X10'3 (4.5-11.0)
[2024-12-09 02:05] LABS: ALANINE AMINOTRANSFERASE 27 U/L (12-78); ALBUMIN 3.3 G/DL (3.4-5.0); ALBUMIN/GLOBULIN RATIO 0.8 (1.1-1.5); ALKALINE PHOSPHATASE 127 IU/L (46-116); ANION GAP 10 (8-16); ASPARTATE AMINO TRANSFERASE 22 U/L (10-37); BILIRUBIN,TOTAL 0.4 MG/DL (0.1-1.0); BLOOD UREA NITROGEN 20 MG/DL (7-18); CALCIUM 8.9 MG/DL (8.5-10.1); CHLORIDE 106 MMOL/L (99-107); CREATININE 0.87 MG/DL (0.60-1.10); GLUCOSE 119 MG/DL (70-104); POTASSIUM 3.7 MMOL/L (3.5-5.1); SODIUM 143 MMOL/L (135-145); TOTAL CARBON DIOXIDE 26.8 MMOL/L (24-32); TOTAL PROTEIN 7.6 G/DL (6.4-8.2); eCRCL 91 ML/MIN; eGFR > 90 ML/MIN
[2024-12-09 02:28] LABS: PLATELET ESTIMATE NORMAL; TOTAL CELLS COUNTED 100
[2024-12-09 02:29] LABS: SMUDGE CELLS 2+
[2024-12-09] MEDS: CefTRIAXone 2gm/D5W 50ml BAG 50 ML IV ONE (03:07)
[2024-12-09] MEDS ORDERED: CEPH500C3 PO (04:43)
[2024-12-09 05:26] VITALS: RESP 16
== END 2024-12-09 05:27 | disposition home or self-care (01) ==
LOC: ER 00:53
DX: L03.116 Cellulitis of left lower limb (principal); Z59.00 Homelessness unspecified; Z79.899 Other long term (current) drug therapy
CPT/HCPCS: 36415; 71045; 80053; 83605; 85007; 85025; 87040; 96365; 99284; J0696

== ENCOUNTER 2024-12-30 02:50 | Emergency (ER) | payer BC, MEDICAID ==
[~2024-12-30] VITALS: Ht 170.2 cm; Wt 84.1 kg
[2024-12-30 02:55] VITALS: BP 123/77; PULSE 87; RESP 18; TEMP 97.9; O2SAT 99
[2024-12-30] MEDS ORDERED: ALBU18HF2 INH (03:57)
[2024-12-30] MEDS ORDERED: CEPH-585 PO (03:57)
== END 2024-12-30 04:05 | disposition home or self-care (01) ==
LOC: ER 02:51
DX: T69.022A Immersion foot, left foot, initial encounter (principal); Z98.890 Other specified postprocedural states; X58.XXXA Exposure to other specified factors, initial encounter; Y93.89 Activity, other specified; Y92.89 Other specified places as the place of occurrence of the external cause; Y99.8 Other external cause status
CPT/HCPCS: 99283

== ENCOUNTER 2025-01-02 17:25 | Emergency (ER) | payer BC, MEDICAID ==
[~2025-01-02] VITALS: Ht 170.2 cm; Wt 88.6 kg
[~2025-01-02 17:25] MED LIST changes: +ALBU18HF2 INH; +CEPH-585 PO
[2025-01-02 22:08] VITALS: BP 148/88; PULSE 84; RESP 18; TEMP 98.8; O2SAT 97
== END 2025-01-02 22:11 | disposition home or self-care (01) ==
LOC: ER 17:26
DX: M79.672 Pain in left foot (principal); Z79.899 Other long term (current) drug therapy; Z98.890 Other specified postprocedural states
CPT/HCPCS: 73630; 99283; L3260

== ENCOUNTER 2025-01-03 20:36 | Emergency (ER) | payer BC, MEDICAID ==
[~2025-01-03] VITALS: Ht 170.2 cm; Wt 65.3 kg
[2025-01-03 21:01] VITALS: BP 142/78; PULSE 74; RESP 15; O2SAT 99
[2025-01-04] MEDS ORDERED: ibuprofen tablet 400 MG TABLET PO ONE (00:10)
[2025-01-04] MEDS ORDERED: IBUP-1984 PO (00:15)
[2025-01-04] MEDS ORDERED: KETO15CR2 TOP (00:15)
[2025-01-04] MEDS: acetaminophen 325mg tablet PO ONE (00:40)
[2025-01-04] MEDS: ibuprofen tablet 400 MG TABLET PO ONE (00:40)
[2025-01-04 00:57] VITALS: TEMP 97.7
== END 2025-01-04 01:03 | disposition home or self-care (01) ==
LOC: ER 20:37
DX: M25.512 Pain in left shoulder (principal); M79.642 Pain in left hand; M25.522 Pain in left elbow; Z98.890 Other specified postprocedural states; W01.0XXA Fall on same level from slipping, tripping and stumbling without subsequent striking against object, initial encounter; Y93.01 Activity, walking, marching and hiking; Y92.89 Other specified places as the place of occurrence of the external cause; Y99.8 Other external cause status
CPT/HCPCS: 73030; 73080; 73120; 99284

== ENCOUNTER 2025-01-12 22:09 | Emergency (ER) | payer BC, MEDICAID ==
[~2025-01-12] VITALS: Ht 170.2 cm; Wt 95.5 kg
[~2025-01-12 22:09] MED LIST changes: +IBUP-1984 PO; +KETO15CR2 TOP
[2025-01-12 22:18] VITALS: BP 124/72; PULSE 102; RESP 18; TEMP 98.9; O2SAT 95
[2025-01-12] MEDS ORDERED: TAM75C PO (23:47)
[2025-01-13] MEDS: oseltamivir phos 75mg capsule PO ONE (00:02)
== END 2025-01-13 00:13 | disposition home or self-care (01) ==
LOC: ER 22:10
DX: R05.9 Cough, unspecified (principal); J02.9 Acute pharyngitis, unspecified; R50.9 Fever, unspecified; J00 Acute nasopharyngitis [common cold]; F15.90 Other stimulant use, unspecified, uncomplicated; Z79.1 Long term (current) use of non-steroidal anti-inflammatories (NSAID); Z79.899 Other long term (current) drug therapy; Z98.890 Other specified postprocedural states; Z59.00 Homelessness unspecified; Z20.822 Contact with and (suspected) exposure to COVID-19
CPT/HCPCS: 36415; 71045; 87502; 87503; 87811; 99284

== ENCOUNTER 2025-01-13 07:27 | Emergency (ER) | payer BC, MEDICAID ==
[~2025-01-13] VITALS: Ht 170.2 cm; Wt 74.0 kg
[~2025-01-13 07:27] MED LIST changes: +TAM75C PO
[2025-01-13] MEDS: ketorolac trometh 30MG/ML vial 30 MG/ML VIAL IM ONE (09:47)
[2025-01-13 10:55] VITALS: BP 130/84; PULSE 67; RESP 14; TEMP 98.1; O2SAT 98
== END 2025-01-13 10:59 | disposition home or self-care (01) ==
LOC: ER 07:27
DX: S60.222A Contusion of left hand, initial encounter (principal); S70.02XA Contusion of left hip, initial encounter; S00.83XA Contusion of other part of head, initial encounter; F15.90 Other stimulant use, unspecified, uncomplicated; Z79.1 Long term (current) use of non-steroidal anti-inflammatories (NSAID); Z79.899 Other long term (current) drug therapy; Z59.00 Homelessness unspecified; Z98.890 Other specified postprocedural states; Y04.8XXA Assault by other bodily force, initial encounter; Y93.89 Activity, other specified; Y92.89 Other specified places as the place of occurrence of the external cause; Y99.8 Other external cause status
CPT/HCPCS: 73130; 96372; 99284; J1885

== ENCOUNTER 2025-01-15 04:52 | Observation (INO) | payer BC, MEDICAID ==
[~2025-01-15] VITALS: Ht 170.2 cm; Wt 70.2 kg
[2025-01-15 06:40] LABS: BASOPHILS # (AUTO) 0.1 X10'3 (0-0.2); EOSINOPHILS # (AUTO) 0.2 X10'3 (0-0.9); EOSINOPHILS % (AUTO) 3.1 % (0-6); HEMATOCRIT 42.2 % (42.0-52.0); HEMOGLOBIN 14.2 g/dl (14.0-17.9); LYMPHOCYTES # (AUTO) 0.9 X10'3 (1.1-4.8); LYMPHOCYTES % (AUTO) 14.9 % (21-51); MEAN CORPUSCULAR HEMOGLOBIN 29.5 PG (27.0-31.0); MEAN CORPUSCULAR HGB CONC 33.7 g/dL (33.0-36.5); MEAN CORPUSCULAR VOLUME 87.5 FL (78-98); MEAN PLATELET VOLUME 6.9 FL (7.4-10.4); MONOCYTES # (AUTO) 0.5 X10'3 (0-0.9); MONOCYTES % (AUTO) 7.8 % (2-12); NEUTROPHILS # (AUTO) 4.5 X10'3 (1.8-7.7); NEUTROPHILS % (AUTO) 73.2 % (42-75); PLATELET COUNT 382 X10'3 (140-440); RED BLOOD COUNT 4.82 X10'6 (4.70-6.10); WHITE BLOOD COUNT 6.2 X10'3 (4.5-11.0)
[2025-01-15 06:43] LABS: ALANINE AMINOTRANSFERASE 39 U/L (12-78); ALBUMIN 3.4 G/DL (3.4-5.0); ALBUMIN/GLOBULIN RATIO 0.9 (1.1-1.5); ALKALINE PHOSPHATASE 133 IU/L (46-116); ANION GAP 6 (8-16); ASPARTATE AMINO TRANSFERASE 28 U/L (10-37); BILIRUBIN,TOTAL 0.3 MG/DL (0.1-1.0); BLOOD UREA NITROGEN 20 MG/DL (7-18); BUN/CREATININE RATIO 39.2 (10.0-20.0); CALCIUM 8.4 MG/DL (8.5-10.1); CHLORIDE 107 MMOL/L (99-107); CREATININE 0.51 MG/DL (0.60-1.10); GLUCOSE 115 MG/DL (70-104); LIPASE 135 U/L (16-77); POTASSIUM 3.5 MMOL/L (3.5-5.1); SODIUM 141 MMOL/L (135-145); TOTAL CARBON DIOXIDE 28.5 MMOL/L (24-32); TOTAL PROTEIN 7.4 G/DL (6.4-8.2); eCRCL 155 ML/MIN; eGFR > 90 ML/MIN
[2025-01-15] MEDS ORDERED: iohexol 300mg/ml 100ml inj. ONE (08:24)
[2025-01-15] MEDS: normal saline 1000ML IV soln IVB ONE ×2 (08:26→13:14)
[2025-01-15 08:29] LABS: ETHANOL < 10 MG/DL (<10)
[2025-01-15] MEDS ORDERED: vancomycin/NS 1 GM ADD-VANTAGE 250 ML IV ONE (10:25)
[2025-01-15 11:20] LABS: BILIRUBIN,URINE NEGATIVE (Neg); CLARITY,URINE CLEAR (Clear); COLOR,URINE YELLOW (Yellow); GLUCOSE, URINE NEGATIVE (Neg); KETONES,URINE NEGATIVE (Neg); LEUKOCYTE ESTERASE ,URINE NEGATIVE (Neg); NITRITES, URINE NEGATIVE (Neg); OCCULT BLOOD,URINE NEGATIVE (Neg); PROTEIN,URINE TRACE mg/dl (Neg); UROBILINOGEN,URINE 0.2 E.U/dL (0.2-1.0)
[2025-01-15 11:29] LABS: UA COLLECTION TYPE CLN CATCH MIDSTREAM
[2025-01-15 11:37] LABS: WBC,URINE 0-4 /HPF (0-4)
[2025-01-15 11:38] LABS: BACTERIA,URINE FEW /HPF (Neg); MUCUS STRANDS FEW /LPF (Neg); RBC,URINE 0-2 /HPF (0-2); SQUAMOUS EPITHELIAL CELL,UR FEW /LPF (FEW)
[2025-01-15] MEDS: normal saline 1000ML IV soln IV ONE (11:39)
[2025-01-15] MEDS: vancomycin/NS 1 GM ADD-VANTAGE 250 ML IV ONE (11:39)
[2025-01-15] MEDS ORDERED: ipratropium/albuterol 3ml nebule NEB PRN (11:40)
[2025-01-15] MEDS ORDERED: magnesium sulf-water 2g/50mL 50 ML IV PRN (11:40)
[2025-01-15] MEDS ORDERED: HYDROmorphone inj. 0.5 MG/0.5 ML DISP.SYRIN IV PRN (11:40)
[2025-01-15] MEDS ORDERED: HYDROcodone/acetaminophen 10/325mg tab PO PRN (11:40)
[2025-01-15] MEDS ORDERED: magnesium sulf-water 4G/100mL 100 ML IV PRN (11:40)
[2025-01-15] MEDS ORDERED: acetaminophen 325mg tablet PO PRN ×2 (11:40)
[2025-01-15] MEDS ORDERED: potassium Cl 40MEQ/1/2NS 520ml 520 ML IV PRN (11:40)
[2025-01-15] MEDS ORDERED: ondansetron/PF 4mg/2ml inj IV PRN (11:40)
[2025-01-15] MEDS ORDERED: HYDROmorphone/PF 0.2 MG/ML SYRINGE IV PRN (11:40)
[2025-01-15] MEDS ORDERED: potassium Cl 20 mEq SR tablet PO PRN ×2 (11:40)
[2025-01-15] MEDS ORDERED: mag hydrox/Alum hydrox/simeth 30ml oral suspension PO PRN (11:40)
[2025-01-15] MEDS ORDERED: albuterol 2.5 MG/3 ML nebule NEB PRN (11:40)
[2025-01-15] MEDS ORDERED: magnesium hydroxide 30ml (MOM) UD suspension PO PRN (11:40)
[2025-01-15] MEDS ORDERED: LORazepam 2 mg/ml vial IV PRN (12:55)
[2025-01-15] MEDS ORDERED: haloperidol 5mg tablet PO PRN (12:55)
[2025-01-15] MEDS ORDERED: haloperidol lactate 5mg/ml inj IM PRN (12:55)
[2025-01-15] MEDS: CefTRIAXone/D5W-Rocephin 1gm 50 ML IV ONE (13:21)
[2025-01-15] MEDS: normal saline 1000ml 1,000 ML IV SCH (13:47)
[2025-01-15 14:30] VITALS: PULSE 78; RESP 16; O2SAT 99
[2025-01-15] MEDS ORDERED: LORA10TA7 PO (17:15)
[2025-01-15] MEDS ORDERED: ALBUTEROL 108MCG/A A INH (17:26)
[2025-01-15] MEDS ORDERED: HYDR28CR14 TOP (17:26)
[2025-01-15] MEDS ORDERED: CLOT15CR35 TOP (17:26)
[2025-01-15 19:45] VITALS: BP 131/77; PULSE 88; RESP 16; TEMP 98.4; O2SAT 97
[2025-01-15] MEDS: K and/or MAG REPLACEMENT MC SCH (20:00)
[2025-01-15] MEDS ORDERED: enoxaparin 40mg/0.4ml syringe SQ SCH (20:00)
[2025-01-15] MEDS: docusate sod 100mg capsule PO SCH (20:17)
[2025-01-15] MEDS: vancomycin/NS 1 GM ADD-VANTAGE 250 ML IV SCH (21:22)
[2025-01-15 22:00] VITALS: BP 141/84; PULSE 87; RESP 18; TEMP 98.8; O2SAT 98
[2025-01-16 00:01] VITALS: O2SAT 98
[2025-01-16] MEDS ORDERED: albuterol 2.5 MG/3 ML nebule NEB PRN (01:40)
[2025-01-16 06:00] VITALS: BP 127/86; PULSE 78; RESP 18; TEMP 98.3; O2SAT 98
[2025-01-16 06:10] LABS: BASOPHILS # (AUTO) 0.1 X10'3 (0-0.2); BASOPHILS % (AUTO) 1.1 % (0-1); EOSINOPHILS # (AUTO) 0.2 X10'3 (0-0.9); EOSINOPHILS % (AUTO) 2.6 % (0-6); HEMATOCRIT 37.3 % (42.0-52.0); HEMOGLOBIN 12.6 g/dl (14.0-17.9); LYMPHOCYTES # (AUTO) 0.8 X10'3 (1.1-4.8); LYMPHOCYTES % (AUTO) 13.8 % (21-51); MEAN CORPUSCULAR HEMOGLOBIN 29.8 PG (27.0-31.0); MEAN CORPUSCULAR HGB CONC 33.8 g/dL (33.0-36.5); MEAN CORPUSCULAR VOLUME 88.1 FL (78-98); MEAN PLATELET VOLUME 6.9 FL (7.4-10.4); MONOCYTES # (AUTO) 0.5 X10'3 (0-0.9); MONOCYTES % (AUTO) 8.2 % (2-12); NEUTROPHILS # (AUTO) 4.4 X10'3 (1.8-7.7); NEUTROPHILS % (AUTO) 74.3 % (42-75); PLATELET COUNT 327 X10'3 (140-440); RED BLOOD COUNT 4.23 X10'6 (4.70-6.10); RED CELL DISTRIBUTION WIDTH 15.1 % (11.5-14.5); WHITE BLOOD COUNT 5.9 X10'3 (4.5-11.0)
[2025-01-16 06:23] LABS: ALANINE AMINOTRANSFERASE 29 U/L (12-78); ALBUMIN 2.7 G/DL (3.4-5.0); ALBUMIN/GLOBULIN RATIO 0.8 (1.1-1.5); ALKALINE PHOSPHATASE 103 IU/L (46-116); ANION GAP 5 (8-16); ASPARTATE AMINO TRANSFERASE 18 U/L (10-37); BILIRUBIN,TOTAL 0.5 MG/DL (0.1-1.0); BLOOD UREA NITROGEN 11 MG/DL (7-18); BUN/CREATININE RATIO 18.6 (10.0-20.0); CALCIUM 8.4 MG/DL (8.5-10.1); CHLORIDE 110 MMOL/L (99-107); CREATININE 0.59 MG/DL (0.60-1.10); GLUCOSE 107 MG/DL (70-104); LIPASE 30 U/L (16-77); MAGNESIUM 1.8 MG/DL (1.5-2.4); PHOSPHORUS 3.5 MG/DL (2.3-4.5); POTASSIUM 3.9 MMOL/L (3.5-5.1); SODIUM 142 MMOL/L (135-145); TOTAL CARBON DIOXIDE 26.6 MMOL/L (24-32); TOTAL PROTEIN 6.1 G/DL (6.4-8.2); eCRCL 134 ML/MIN; eGFR > 90 ML/MIN
[2025-01-16 06:25] LABS: PROTHROMBIN TIME 10.3 SECONDS (9.0-12.0)
[2025-01-16 08:59] VITALS: RESP 16
[2025-01-16] MEDS: CefTRIAXone/D5W-Rocephin 1gm 50 ML IV SCH (09:52)
[2025-01-16] MEDS: baclofen 10mg tablet PO SCH (09:52)
[2025-01-16] MEDS: loratadine 10mg tablet PO SCH (09:52)
[2025-01-16] MEDS: HYDROcodone/acetaminophen 5mg/325mg tablet PO PRN (09:55)
[2025-01-16 10:00] VITALS: BP 145/93; PULSE 94; RESP 16; TEMP 98.2; O2SAT 97
[2025-01-16] MEDS ORDERED: VANCOMYCIN LEVEL IV ONE (11:30)
[2025-01-16] MEDS ORDERED: ACAM333T8 PO (11:40)
[2025-01-16] MEDS: VANCOMYCIN/WATER FOR INJ (PEG) 1.25GM/250 ML IVPB IV SCH (13:55)
[2025-01-16 19:15] VITALS: RESP 18; O2SAT 96
[2025-01-17] MEDS ORDERED: VANCOMYCIN LEVEL IV ONE (12:30)
[2025-01-17] MEDS ORDERED: LORazepam 1 MG tablet PO PRN (12:55)
[2025-01-17] MEDS ORDERED: LORazepam 2 mg/ml vial IV PRN (12:55)
== END 2025-01-16 19:34 | disposition home or self-care (01) ==
LOC: ER 04:52 → ED HOLD 11:47 → INTOOBSV 11:47 → ORTHO 4S 19:28
PROVIDERS: ADMIT Family Medicine; ATTEND Family Medicine
DX: F10.129 Alcohol abuse with intoxication, unspecified (principal); L03.317 Cellulitis of buttock; S70.02XA Contusion of left hip, initial encounter; S70.12XA Contusion of left thigh, initial encounter; L02.416 Cutaneous abscess of left lower limb; J45.909 Unspecified asthma, uncomplicated; R74.8 Abnormal levels of other serum enzymes; M86.9 Osteomyelitis, unspecified; R10.84 Generalized abdominal pain; K85.90 Acute pancreatitis without necrosis or infection, unspecified; M60.9 Myositis, unspecified; R11.2 Nausea with vomiting, unspecified; G80.9 Cerebral palsy, unspecified; F15.90 Other stimulant use, unspecified, uncomplicated; F17.210 Nicotine dependence, cigarettes, uncomplicated; Z79.899 Other long term (current) drug therapy; Z59.00 Homelessness unspecified; X58.XXXA Exposure to other specified factors, initial encounter; Y93.9 Activity, unspecified; Y92.89 Other specified places as the place of occurrence of the external cause; Y99.8 Other external cause status; Y90.0 Blood alcohol level of less than 20 mg/100 ml
CPT/HCPCS: 36415; 71045; 80053; 80202; 80320; 81001; 83605; 83690; 83735; 84100; 84145; 85025; 85610; 87040; 87081; 94760; 96361; 96365; 96366; 96367; 97161; 97535; 99285; G0378; J0696; J3370; J7030; Q9967

== ENCOUNTER 2025-01-20 01:46 | Emergency (ER) | payer BC, MEDICAID ==
[~2025-01-20] VITALS: Ht 170.2 cm; Wt 73.8 kg
[~2025-01-20 01:46] MED LIST changes: +ACAM333T8 PO; -ALBU18HF2 INH; +ALBUTEROL 108MCG/A A INH; -CEPH-585 PO; +CLOT15CR35 TOP; +HYDR28CR14 TOP; -IBUP-1984 PO; -KETO15CR2 TOP; +LORA10TA7 PO; -TAM75C PO
[2025-01-20 01:52] VITALS: BP 119/95; PULSE 87; RESP 17; O2SAT 100
[2025-01-20] MEDS: LORazepam 1 MG tablet PO ONE (02:11)
[2025-01-20] MEDS: normal saline 1000ml 1,000 ML IV ONE (02:11)
[2025-01-20 02:50] LABS: BASOPHILS # (AUTO) 0.1 X10'3 (0-0.2); EOSINOPHILS # (AUTO) 0.1 X10'3 (0-0.9); EOSINOPHILS % (AUTO) 3.1 % (0-6); HEMATOCRIT 39.9 % (42.0-52.0); HEMOGLOBIN 13.4 g/dl (14.0-17.9); LYMPHOCYTES # (AUTO) 1.2 X10'3 (1.1-4.8); LYMPHOCYTES % (AUTO) 24.3 % (21-51); MEAN CORPUSCULAR HEMOGLOBIN 29.6 PG (27.0-31.0); MEAN CORPUSCULAR HGB CONC 33.6 g/dL (33.0-36.5); MEAN PLATELET VOLUME 6.5 FL (7.4-10.4); MONOCYTES # (AUTO) 0.7 X10'3 (0-0.9); MONOCYTES % (AUTO) 15.2 % (2-12); NEUTROPHILS # (AUTO) 2.6 X10'3 (1.8-7.7); NEUTROPHILS % (AUTO) 55.4 % (42-75); PLATELET COUNT 320 X10'3 (140-440); RED BLOOD COUNT 4.53 X10'6 (4.70-6.10); WHITE BLOOD COUNT 4.8 X10'3 (4.5-11.0)
[2025-01-20 03:04] LABS: ALANINE AMINOTRANSFERASE 30 U/L (12-78); ALBUMIN 3.6 G/DL (3.4-5.0); ALBUMIN/GLOBULIN RATIO 1.1 (1.1-1.5); ALKALINE PHOSPHATASE 114 IU/L (46-116); ANION GAP 6 (8-16); ASPARTATE AMINO TRANSFERASE 25 U/L (10-37); BILIRUBIN,TOTAL 0.8 MG/DL (0.1-1.0); BLOOD UREA NITROGEN 27 MG/DL (7-18); BUN/CREATININE RATIO 34.2 (10.0-20.0); CALCIUM 8.7 MG/DL (8.5-10.1); CHLORIDE 105 MMOL/L (99-107); CREATININE 0.79 MG/DL (0.60-1.10); GLUCOSE 89 MG/DL (70-104); POTASSIUM 3.9 MMOL/L (3.5-5.1); SODIUM 139 MMOL/L (135-145); TOTAL CARBON DIOXIDE 27.6 MMOL/L (24-32); eCRCL 100 ML/MIN; eGFR > 90 ML/MIN
[2025-01-20 03:16] LABS: PLATELET ESTIMATE NORMAL; TOTAL CELLS COUNTED 100
[2025-01-20] MEDS ORDERED: LOPE-144 PO (03:16)
[2025-01-20 03:37] VITALS: TEMP 98.9
== END 2025-01-20 03:39 | disposition home or self-care (01) ==
LOC: ER 01:47
DX: R19.7 Diarrhea, unspecified (principal); F41.9 Anxiety disorder, unspecified; F15.90 Other stimulant use, unspecified, uncomplicated; Z79.899 Other long term (current) drug therapy
CPT/HCPCS: 36415; 80053; 85007; 85025; 96360; 99283; J7030

== ENCOUNTER 2025-01-20 08:30 | Emergency (ER) | payer BC, MEDICAID ==
[~2025-01-20] VITALS: Ht 170.2 cm; Wt 84.5 kg
[~2025-01-20 08:30] MED LIST changes: +LOPE-144 PO
[2025-01-20 12:10] VITALS: BP 144/76; PULSE 72; RESP 15; TEMP 97.8; O2SAT 98
== END 2025-01-20 12:07 | disposition home or self-care (01) ==
LOC: ER 08:31
DX: R53.1 Weakness (principal); F15.90 Other stimulant use, unspecified, uncomplicated; Z59.00 Homelessness unspecified; Z79.899 Other long term (current) drug therapy; Z98.890 Other specified postprocedural states
CPT/HCPCS: 99281

== ENCOUNTER 2025-01-22 05:01 | Emergency (ER) | payer BC, MEDICAID ==
[~2025-01-22] VITALS: Ht 170.2 cm; Wt 64.7 kg
[2025-01-22 05:04] VITALS: BP 160/90; PULSE 87; RESP 18; TEMP 97.8; O2SAT 100
[2025-01-22] MEDS ORDERED: TOLN108P2 TOP (05:30)
== END 2025-01-22 05:43 | disposition home or self-care (01) ==
LOC: ER 05:02
DX: M79.671 Pain in right foot (principal); M79.672 Pain in left foot; G89.29 Other chronic pain; Z98.890 Other specified postprocedural states; F15.90 Other stimulant use, unspecified, uncomplicated
CPT/HCPCS: 99284

== ENCOUNTER 2025-01-24 05:33 | Emergency (ER) | payer BC, MEDICAID ==
[~2025-01-24] VITALS: Ht 165.1 cm; Wt 67.8 kg
[~2025-01-24 05:33] MED LIST changes: +TOLN108P2 TOP
[2025-01-24 05:53] VITALS: TEMP 98.6
[2025-01-24 07:00] VITALS: BP 149/100; PULSE 88; RESP 16; O2SAT 99
== END 2025-01-24 08:08 | disposition home or self-care (01) ==
LOC: ER 05:33
DX: T76.21XA Adult sexual abuse, suspected, initial encounter (principal); G89.11 Acute pain due to trauma; S80.02XA Contusion of left knee, initial encounter; F15.90 Other stimulant use, unspecified, uncomplicated; Z98.890 Other specified postprocedural states; Y08.89XA Assault by other specified means, initial encounter; Y93.89 Activity, other specified; Y92.89 Other specified places as the place of occurrence of the external cause; Y99.8 Other external cause status; Y09 Assault by unspecified means
CPT/HCPCS: 73564; 99283